=== PATIENT | female | born 1995 | race African-American/Black ===

== ENCOUNTER 2017-06-15 18:45 | Emergency (ER) | payer OTHER, MEDICAID ==
[~2017-06-15] VITALS: Ht 152.4 cm; Wt 77.2 kg
[~2017-06-15 18:45] MED LIST: ACETAMINOPHEN-1 EAC1 PO; AMOXICILLIN 50500 MG PO; IBUPROFEN 800800 MG PO; KEFLEX500 MG PO; LIDOCAINE VISC100 M1 MM; NOHOMEMEDICATIONS; PRENATAL
[2017-06-15 19:10] LABS: URINE BILIRUBIN NEGATIVE (Negative); URINE BLOOD NEGATIVE (Negative); URINE CLARITY CLEAR; URINE COLOR YELLOW; URINE GLUCOSE-RANDOM NEGATIVE (Negative); URINE KETONES NEGATIVE (Negative); URINE NITRITE-REFLEX NEGATIVE (Negative); URINE PROTEIN NEGATIVE (Negative)
[2017-06-15 19:16] LABS: URINE LEUKOCYTES-REFLEX 3+ (Negative)
[2017-06-15 19:19] LABS: CASTS None Seen /LPF (None Seen); CRYSTALS None Seen /LPF (None Seen); MUCUS 0-3 Light strn/LPF (None Seen); SQUAMOUS >10 Many /LPF (0-3)
[2017-06-15 19:20] LABS: URINE RBC 0-2 Rare /HPF (0-2); URINE WBC-REFLEX 6-15 Few /HPF (0-5)
[2017-06-15] MEDS ORDERED: MACROBID 100 M100 M1 PO (19:46)
[2017-06-15] MEDS ORDERED: PRENATAL ONE T1 EACH PO (19:46)
[2017-06-15 19:57] VITALS: BP 118/62
== END 2017-06-15 19:58 | disposition home or self-care (01) ==
LOC: M.ERS 18:45
PROVIDERS: Nurse Practitioner Family
DX: O23.40 Unspecified infection of urinary tract in pregnancy, unspecified trimester (principal); Z3A.00 Weeks of gestation of pregnancy not specified; Z88.0 Allergy status to penicillin